=== PATIENT | female | born 1940 | race Native Hawaiian/Other Pacific Islander ===

== ENCOUNTER → 2020-04-16 | Emergency (ER) | payer OTHER ==
[~2020-04-16] VITALS: Ht 162.6 cm; Wt 53.1 kg
[~2020-04-16] MED LIST: DOCU100C10 PO; MELATONIN3 M1 PO
[2020-04-16 18:51] VITALS: BP 135/56
[2020-04-16 19:26] LABS: PLATELET COUNT 299 K/uL (152-353)
[2020-04-16 19:42] LABS: POTASSIUM 4.3 mmol/L (3.6-5.2)
== END ==
LOC: ED 18:51
PROVIDERS: Hospitalist
DX: F03.91 Unspecified dementia, unspecified severity, with behavioral disturbance (principal); R45.1 Restlessness and agitation; Z11.59 Encounter for screening for other viral diseases; Z04.6 Encounter for general psychiatric examination, requested by authority
CPT/HCPCS: 36415; 80053; 81000; 85027; 87635; 93005; 99283; 99285; U0003